=== PATIENT | male | born 1980 | race Caucasian/White ===

== ENCOUNTER → 2019-09-09 09:50 | Outpatient (BNVA) | payer MEDICAID, SELFPAY | PROVIDERS: Family Provider Family Medicine; Visit Provider Counselor Professional | DX: F41.1 Generalized anxiety disorder (principal); Z70.9 Sex counseling, unspecified | CPT/HCPCS: 90834 ==

== ENCOUNTER → 2019-10-04 12:35 | Outpatient (BNVA) | payer MEDICAID, SELFPAY | PROVIDERS: Family Provider Family Medicine; Visit Provider Counselor Professional | DX: F41.1 Generalized anxiety disorder (principal); Z70.9 Sex counseling, unspecified | CPT/HCPCS: 90834 ==

== ENCOUNTER → 2019-10-25 13:42 | Outpatient (BNVA) | payer MEDICAID, SELFPAY | PROVIDERS: Family Provider Family Medicine; Visit Provider Counselor Professional | DX: F32.5 Major depressive disorder, single episode, in full remission (principal); F43.12 Post-traumatic stress disorder, chronic | CPT/HCPCS: 90832 ==

== ENCOUNTER → 2022-05-12 09:12 | Outpatient (BNVA) | payer BC, MEDICAID, SELFPAY | PROVIDERS: Family Provider Family Medicine; Referring Provider Nurse Practitioner; Visit Provider Orthopaedic Surgery | DX: M47.816 Spondylosis without myelopathy or radiculopathy, lumbar region (principal) | CPT/HCPCS: 72110 ==

== ENCOUNTER 2022-06-29 14:09 | Outpatient (CLI) | payer BC, MEDICAID, SELFPAY ==
--- NOTE | 2022-06-29 14:30 | MR_ITS ---
WS: [id number] MRI LUMBAR SPINE NONCONTRAST TECHNIQUE: Sagittal T1, T2 and STIR imaging. Axial T1 and T2 imaging. CLINICAL INFORMATION: back pain, BLE numbness, weakness, tingling COMPARISON: MRI 2018 FINDINGS: Mild lumbar curve. No acute compression. No high-grade central canal stenosis. L1-L2: Mild annular bulging. Slight narrowing of the RIGHT subarticular recess. Mild facet arthropath y. Mild RIGHT and no LEFT foraminal narrowing. Moderate facet arthropathy. Spinal canal is patent. L2-L3: Mild annular bulging. Slight narrowing of the LEFT subarticular recess. Spinal canal and michele en are patent. Moderate facet arthropathy. L3-L4: No significant disc bulging. Slight narrowing of the LEFT subarticular recess. Mild LEFT and n o RIGHT foraminal narrowing. Moderate facet arthropathy. L4-L5: Mild annular bulging with slight effacement of ventral thecal sac. Slight impingement traversi ng L5 nerve roots. Moderate facet arthropathy. Mild RIGHT and no significant LEFT foraminal narrowing . L5-S1: Tiny shallow central protrusion. Slight effacement of the ventral thecal sac. Mild facet arthr opathy. Spinal canal and foramen are patent. Visualized pelvic bony structures: Normal. Paravertebral soft tissues: Normal. MR/MR lumbar spine wo con* [id number] IMPRESSION: 1. Mild lumbar curve. No acute compression. No high-grade central canal stenos is. 2. Narrowing of the RIGHT L1-L2 subarticular recess with slight impingement tr aversing RIGHT L2 nerve root progressed compared to previous. 3. Narrowing of the LEFT L2-L3 subarticular recess progressed compared to prev ious. 4. Narrowing of the LEFT L3-L4 subarticular recess progressed compared to prev ious. 5. Mild annular bulging L4-L5 with slight contact of the traversing L5 nerve r oots bilaterally unchanged. 6. Tiny shallow central protrusion L5-S1 slightly encroaches on the RIGHT S1 n erve root without significant impingement. 7. Mild RIGHT L1-L2, LEFT L3-L4, and RIGHT L4-L5 foraminal narrowing. 8. Moderate facet arthropathy L3-L5.
== END 2022-06-29 14:10 | disposition home or self-care (01) ==
LOC: RAD 14:12
PROVIDERS: PCP Nurse Practitioner; Visit Provider Orthopaedic Surgery
DX: M51.27 Other intervertebral disc displacement, lumbosacral region (principal); M51.26 Other intervertebral disc displacement, lumbar region; M47.896 Other spondylosis, lumbar region
CPT/HCPCS: 72148

== ENCOUNTER 2022-11-28 08:56 | Outpatient (CLI) | payer BC, MEDICAID, SELFPAY ==
[2022-11-28 09:31] LABS: Basophils # 0.1 10^3/uL (0.0-0.1); Basophils % 0.7 %; Eosinophils # 0.1 10^3/uL (0.0-0.8); Eosinophils % 0.9 %; Hematocrit 44.4 % (42.0-52.0); Hemoglobin 15.3 g/dL (11.7-16.6); Lymphocytes % 29.9 %; Mean Corpuscular HGB Conc 34.5 g/dL (30.0-36.0); Mean Corpuscular Hemoglobin 30.4 pg (28.0-34.0); Mean Corpuscular Volume 88.3 fl (80-94); Mean Platelet Volume 9.9 fL (7.4-10.4); Monocytes # 0.6 10^3/uL (0.2-0.9); Monocytes % 8.8 %; Neutrophils # 4.01 10^3/uL (1.8-7.7); Neutrophils % 59.6 %; Nucleated Red Blood Cells % 0 %; Platelet Count 213 10^3/cmm (130-400); Red Blood Count 5.03 10^6/uL (4.1-5.3); White Blood Count 6.7 10^3/uL (4.0-10.0)
[2022-11-28 09:46] LABS: Alanine Aminotransferase 17 U/L (0-41); Albumin Level 4.6 g/dL (3.5-5.2); Alkaline Phosphatase 65 U/L (40-130); Anion Gap 12.1 (5-19); Aspartate Amino Transferase 15 U/L (0-40); Blood Urea Nitrogen 15 mg/dL (6-20); Calcium 9.2 mg/dL (8.5-10.5); Carbon Dioxide 27 mmol/L (22-29); Chloride 102 mmol/L (98-107); Globulin 2.7 g/dL (1.3-4.6); Glomerular Filtration Rate 91.7 mL/min (90-130); Glucose 103 mg/dL (65-115); Osmolality Calculated 285 mOsm/kg (285-295); Potassium 4.1 mmol/L (3.5-5.1); Sodium 137 mmol/L (136-145); Total Bilirubin 0.4 mg/dL (0.15-1.2); Total Protein 7.3 g/dL (6.6-8.7)
== END 2022-11-28 08:57 | disposition home or self-care (01) ==
PROVIDERS: PCP Nurse Practitioner; Visit Provider Physician Assistant
DX: M47.816 Spondylosis without myelopathy or radiculopathy, lumbar region (principal); M51.16 Intervertebral disc disorders with radiculopathy, lumbar region; M48.062 Spinal stenosis, lumbar region with neurogenic claudication
CPT/HCPCS: 36415; 80053; 85025

== ENCOUNTER 2023-02-27 09:32 | Outpatient (CLI) | payer BC, MEDICAID, SELFPAY ==
--- NOTE | 2023-02-27 10:15 | MR_ITS ---
WS: [id number] MRI LUMBAR SPINE NONCONTRAST HISTORY: lower back pain COMPARISON: 06/29/2022 TECHNIQUE: Sagittal and axial multisequence imaging is submitted. Normal lumbar alignment with no compression fractures or marrow edema. Mild disc desiccation. No fractures or marrow edema. New postsurgical changes are noted at the L5-S1 level on the LEFT. Conus terminates normally at L1-2 disc level. T11-12: Mild annular disc bulging with facet arthritis. Disc and osteophyte encroaching into the fora men and subarticular recesses. Moderate RIGHT and mild LEFT foraminal stenosis and mild central and s ubarticular recess stenosis. T12-L1: Mild annular disc bulging with osteophytic ridging. LEFT paracentral disc protrusion with gilda ular fissure. Mild encroachment upon the ventral thecal sac. No significant central stenosis. L1-L2: Mild annular disc bulging. Mild narrowing of the subarticular recesses. Similar to the prior s tudy. Mild RIGHT foraminal stenosis. L2-L3: Mild annular disc bulging. Facet joint arthritis is moderate. Minimal encroachment upon the browning barticular recesses. Mild bilateral foraminal stenosis, RIGHT greater than LEFT. L3-L4: Diffuse annular disc bulging with osteophytic ridging. Ligamentum flavum and facet arthritis. Fluid in the facet joints. Mild subarticular recess narrowing. Mild bilateral foraminal stenosis. L4-L5: Mild annular disc bulge with a central disc protrusion. Mild ligamentum flavum and facet arthr itis. Mild bilateral foraminal and subarticular recess stenosis, RIGHT greater than LEFT. Slightly gr eater contact on the traversing RIGHT L5 nerve root. Mild facet arthritis. L5-S1: Mild disc bulging with a central disc protrusion with annular fissure. Mild osteophytic ridgin g. Moderate to severe bilateral facet joint arthritis. There is mild disc and osteophyte contact on t he traversing LEFT S1 nerve root. There is also mild foraminal stenosis. Small central disc protrusio n. New LEFT hemilaminectomy defect. MR/MR lumbar spine wo con* [id number] IMPRESSION: 1. New since the prior examination is a LEFT hemilaminectomy defect at L5-S1. 2. Central disc protrusion with annular fissure L5-S1 with slightly greater co ntact on the LEFT traversing S1 nerve root as compared to the prior study. 3. Moderate to severe facet joint arthritis at L5-S1. 4. Mild bilateral foraminal stenosis at L5-S1. 5. Moderate RIGHT and mild LEFT foraminal stenosis with mild central and subar ticular recess stenosis at T11-12. 6. LEFT paracentral disc protrusion with annular fissure at T12-L1. 7. Mild bilateral foraminal stenosis, RIGHT greater than LEFT at L2-3. 8. Mild subarticular recess and foraminal stenosis at L3-4. 9. Mild bilateral foraminal and subarticular recess stenosis at L4-5, RIGHT gr eater than LEFT with mild contact on the traversing RIGHT L5 nerve root.
== END 2023-02-27 09:33 | disposition home or self-care (01) ==
PROVIDERS: PCP Nurse Practitioner; Visit Provider Physician Assistant
DX: M51.16 Intervertebral disc disorders with radiculopathy, lumbar region (principal); M51.27 Other intervertebral disc displacement, lumbosacral region; Z98.890 Other specified postprocedural states; M47.817 Spondylosis without myelopathy or radiculopathy, lumbosacral region; M48.07 Spinal stenosis, lumbosacral region; M48.04 Spinal stenosis, thoracic region
CPT/HCPCS: 72148

== ENCOUNTER → 2023-03-16 13:57 | Outpatient (BNVA) | payer BC, MEDICAID, SELFPAY | PROVIDERS: PCP Nurse Practitioner; Visit Provider Physician Assistant | DX: Z01.818 Encounter for other preprocedural examination (principal); M51.37 Other intervertebral disc degeneration, lumbosacral region; Z98.890 Other specified postprocedural states | CPT/HCPCS: 36415; 80053; 81003; 85025 ==

== ENCOUNTER 2023-04-19 18:15 | Observation (INO) | payer BC, MEDICAID, SELFPAY ==
[2023-04-18 15:35] VITALS: BMI 30.7
[2023-04-19] VITALS (16 sets, daily range): BP systolic 89–145; BP diastolic 47–81; PULSE 57–82; RESP 15–25; TEMP 36.6–36.8; O2SAT 92–100; BMI 30.7
--- NOTE | 2023-04-19 | XR_ITS ---
WS: [id number] Exam: XR lumbar spine 2-3V* [id number] Date/Time of Exam: 04/19/2023 12:00 AM Reason For Exam: posterior interbody fusion AP and lateral intraoperative C-arm images of the lower lumbar spine are obtained for intraoperative purposes. Images depict pedicle screws in L5 and S1 with intervening disc spacer.
[2023-04-19] MEDS: sodium chloride 0.9% 1,000 ML 30 ML IV (12:28)
[2023-04-19] MEDS: methadone 10 mg Tablet PO (12:28)
[2023-04-19] MEDS: HYDROmorphone 1 mg/mL INJ 1 mL 0.5 MG IVP (13:24)
--- NOTE | 2023-04-19 13:30 | W.PM.OPSFHP ---
Same Day Surgery H&P Indication for Procedure/HPI DATE OF PROCEDURE: April 19, 2023 CHIEF COMPLAINT/INDICATIONFOR SURGICAL PROCEDURE: Low back pain and leg pain PREOP DIAGNOSIS: Degenerative disc disease with lumbar radiculopathy L5-S1 PLANNED PROCEDURE: Operation Date: 04/19/23 12:50 Proposed Procedures p Posterior Lumbar Interbody Fusion PLIF(Not Applicable) - William Avalos, DO Medications/Allergies* Home Medications Medication Instructions Recorded Confirmed Type lidocaine 5 % topical patch 1 patch topical TID 05/12/22 04/18/23 History cyclobenzaprine 10 mg tablet 10 mg PO BID PRN Muscle Spasm 04/04/23 04/18/23 History duloxetine 60 mg capsule,delayed 60 mg PO DAILY 04/04/23 04/18/23 History release hydroxyzine HCl 25 mg tablet 25 mg PO Q6H PRN Anxiety 04/04/23 04/19/23 History meloxicam 15 mg tablet 15 mg PO DAILY 04/04/23 04/19/23 History Allergies/Adverse Reactions Allergy/AdvReac Type Severity Reaction Status Date / Time No Known Allergies Allergy Verified 04/19/23 11:57 Current Medications: Generic Name Dose Route Start Last Admin Trade Name Freq PRN Reason Stop Dose Admin Hydromorphone HCl 0.5 mg 04/19/23 11:49 04/19/23 13:24 Hydromorphone 1 Mg/Ml Inj 1 Ml IVP 0.5 mg ONCE PRN Administration For preop pain/anxiety Sodium Chloride 1,000 mls @ 30 mls/hr 04/19/23 12:00 04/19/23 12:28 Sodium Chloride 0.9% IV 04/20/23 11:59 30 mls/hr .Q24H MARILIA Administration Pertinent History/Comorbid Conditions* Medical History (Updated 04/04/23 @ 10:50 by Mars Patel NP) Bipolar 1 disorder Generalized anxiety disorder Lumbar disc disease with radiculopathy Lumbar stenosis with neurogenic claudication Major depression Surgical History (Updated 04/04/23 @ 10:44 by Mars Patel NP) History of surgery on arm age 1 had compartment syndrome in right arm and had I&D to drain it. Hx of elbow surgery Hx of knee surgery Hx of shoulder surgery Status post lumbar laminectomy Family History (Updated 04/04/23 @ 10:19 by Mars Patel NP) Denies family history of Clotting disorder Anesthesia complication Bleeding disorder Social History Smoking and tobacco status: former smoker Quit status (tobacco): has quit using tobacco Year quit tobacco: 2021 Former quit date comment: 16 pack year history Alcohol intake: former Year of sobriety/quit date alcohol: 25 Substance/Drug Use: former Date of last use: hx of marijuana use Pertinent Exam Findings alert and oriented x 3 Recommendations Surgery/Procedure today Coding Level of Care Code Acute Code for Chg Fwd Diagnoses
--- NOTE | 2023-04-19 13:40 | ANES.PREANE2 ---
Pre-Anesthetic Assessment Height/Weight: Height 1.8 m Weight 99.79 kg Temp Pulse Resp BP Pulse Ox O2 Del Method 97.8 F 68 18 145/81 97 Room Air 04/19/23 12:06 04/19/23 12:06 04/19/23 12:28 04/19/23 12:06 04/19/23 12:28 04/19/23 12:06 Preop Diagnosis: Degenerative disc disease with lumbar radiculopathy L5-S1 Operation Date: 04/19/23 12:50 Proposed Procedures p Posterior Lumbar Interbody Fusion PLIF(Not Applicable) - William Avalos DO Familial anesthetic complications: none Was Beta Francisca taken within 24 hours: N/A Was Clonidine taken within 24 hours: N/A Last intake: Intake Last Liquid Date 04/19/23 Last Liquid Time 06:00 Last Solid Date 04/18/23 Last Solid Time 21:00 Social No alcohol and No tobacco Exam alert, oriented x 3, clear to auscultation bilaterally and regular rate & rhythm Airway Submandibular: within normal limits Cervical ROM: within normal limits Mallampati: Class II Dentition: chipped Musc/skel Lower Back Pain and Osteoarthritis/DJD Neuropsych Bipolar Anesthetic Plan ASA status: 2 Anesthesia: General Medications/Allergies Home Medications Medication Instructions Recorded Confirmed Last Taken Type lidocaine 5 % topical patch 1 patch topical TID 05/12/22 04/18/23 04/17/23 History cyclobenzaprine 10 mg tablet 10 mg PO BID PRN Muscle Spasm 04/04/23 04/18/23 04/18/23 History duloxetine 60 mg capsule,delayed 60 mg PO DAILY 04/04/23 04/18/23 04/19/23 History release hydroxyzine HCl 25 mg tablet 25 mg PO Q6H PRN Anxiety 04/04/23 04/19/23 04/18/23 History meloxicam 15 mg tablet 15 mg PO DAILY 04/04/23 04/19/23 Unknown History Allergies Allergy/AdvReac Type Severity Reaction Status Date / Time No Known Allergies Allergy Verified 04/19/23 11:57 Current Medications Generic Name Dose Route Start Last Admin Trade Name Freq PRN Reason Stop Dose Admin Hydromorphone HCl 0.5 mg 04/19/23 11:49 04/19/23 13:24 Hydromorphone 1 Mg/Ml Inj 1 Ml IVP 0.5 mg ONCE PRN Administration For preop pain/anxiety Sodium Chloride 1,000 mls @ 30 mls/hr 04/19/23 12:00 04/19/23 12:28 Sodium Chloride 0.9% IV 04/20/23 11:59 30 mls/hr .Q24H MARILIA Administration PFSH Anesthesia Medical History Bipolar 1 disorder Generalized anxiety disorder Lumbar disc disease with radiculopathy Lumbar stenosis with neurogenic claudication Major depression Surgical History History of surgery on arm age 1 had compartment syndrome in right arm and had I&D to drain it. Hx of elbow surgery Hx of knee surgery Hx of shoulder surgery Status post lumbar laminectomy Family History Denies family history of Clotting disorder Anesthesia complication Bleeding disorder Social History Smoking and tobacco status: former smoker Quit status (tobacco): has quit using tobacco Year quit tobacco: 2021 Former quit date comment: 16 pack year history Alcohol intake: former Year of sobriety/quit date alcohol: 25 Substance/Drug Use: former Date of last use: hx of marijuana use Data Anesthesia Blood Bank 04/19/23 12:20 Blood Type A Positive Rho(D) Type Positive Antibody Screen Negative Cardiac Studies: No Data to Display
[2023-04-19] MEDS: ceFAZolin 2,000 MG in sodium chloride 0.9% (plus) 50 ML 100 MG IV ×2 (14:13→21:58)
[2023-04-19] MEDS: lidocaine-epi 1% 20 mL INJ INJECTION (14:43)
[2023-04-19] MEDS: vancomycin 1,000 MG SDV 1000 MG XX (14:50)
[2023-04-19] MEDS: heparin, porcine 1,000 unit/mL INJ 10 mL 10000 UNIT XX (14:52)
--- NOTE | 2023-04-19 16:52 | PM.OP ---
Operative Report Date of procedure: April 19, 2023 Pre-op diagnosis: Lumbar stenosis with neurogenic claudication Post-op diagnosis: same Procedure done: 1. L5/S1 Interbody fusion with posterolateral fusion 2. Instrumentation L5/S1 3. Cage at L5/S1 4. L5/S1 Laminectomy with facetectomies 5. use of autograft from same incision 6. allograft 7. Bone marrow aspirate from right iliac crest 8. Use of computer navigation/stereotactic for spine Surgeon: William Avalos DO Commercial Census Taker: Karan Schaefer Commercial Census Taker: The medical or surgical instrument maker, Karan Schaefer, PAC was needed for his expertise under the microscope. He was important and necessary throughout the procedure to complete in a safe and timely manner. He assisted with patient positioning prepping and draping tissue retraction suctioning of the operative field protection of the dural sac and tissue closure Estimated blood loss (mL): 300 Procedure: 1. L5/S1 Interbody fusion with posterolateral fusion 2. Instrumentation L5/S1 3. Cage at L5/S1 4. L5/S1 Laminectomy with facetectomies 5. use of autograft from same incision 6. allograft 7. Bone marrow aspirate from right iliac crest 8. Use of computer navigation/stereotactic for spine Patient is brought to the operative suite. After undergoing anesthesia, the patient had neuro monitoring attached. Patient was then placed in the prone position on the Reji table. All areas of impingement were well-padded. Patient was then prepped and draped in the normal sterile fashion. Skin incision was then made over the L5-S1 disc space. Subperiosteal dissection was made out to the transverse processes of L5 and S1. Once the exposure was complete attention was then brought to obtain bone marrow aspirate. The [employer] bone marrow aspirate kit was used to aspirate bone marrow aspirate in the right iliac crest. This was done by using the sharp probe to open up the bone. Aspiration was performed and then the blunt probe was then used to dissect down to through the bone tunnel. An aspirating well drawn back a millimeter approximately 20 cc of bone marrow aspirate was used. Admixed with the allograft and autograft bone that will be used. Next attention was brought to placing the computer navigation pins. This was done by placing 2 pins in the right iliac crest. These pins will be removed at the end of the case. The fiducial was attached. Then the computer navigation was linked. The C-arm was brought in the information from the C-arm was then loaded into the fiducial into the computer navigation this information was later used for placing the pedicle screws. The technique for placing the pedicle screws was to use a drill followed by the gearshift probe. Followed by the ball probe to feel the superior inferior medial lateral mccarthy of the pedicles. Then placement of the screws. Was done at each pedicle. Screws were placed at L5 bilaterally and S1. Next attention was brought to performing the laminectomy ofL 5. This was done using the high-speed bur Kerrisons and curettes. Once the lamina was removed and then attention was brought to performing a partial facetectomy on the contralateral side. This was done again using the high-speed bur curettes and Kerrisons. The ligamentum flavum was taken down bilaterally from L 5 to S1. Attention was then brought to the facet on the ipsilateral side. The facet was taken down. The S1 nerve was decompressed as it passed around the S1 pedicle. The laminectomy was done for purposes of decompressing the nerve as well as placement of the cage. The L 5 nerve was identified as it traversed through the L5/S1 foramen. The thecal sac was identified and retracted. The L5/S1 disc base was identified. Using a knife the disc base was opened. And then sequential aniyah were placed. The first shaver was a 6 and the last shaver was a 10. Using a pituitary and down going curette the endplates were scraped and disc material was removed from the space. Once adequate decompression of the disc base was felt to be had. Osteoamp sponge was packed into the anterior aspect of the disc base. Then a size 10 cage from Sri was placed after packing osteoamp into the cage. While placing the cage the thecal sac and S1 nerve was protected. C arm was used to ensure that the cages placed in the appropriate position. Attention was then brought to attaching the rods to the screws placed in the L5 and S1 bilaterally. Caps were torqued into position. Locking the construct in place. Wound was copiously irrigated and then attention was brought to decorticating the facets and transverse processes laterally. Bone that was taken down from the lamina was used along with osteoamp fibers and sponges were packed into the lateral gutters along the facet joints. This was done bilaterally. Wound was then closed in a layered fashion starting with the thoracolumbar fascia. 0-vicryl was used the sub cutaneous tissue was closed with 2-0 vicryl and skin with 4-0 monocryl. Glue was then used to seal the skin and a steril dressing was applied. Patient was then placed in the supine position. The endotracheal tube was removed and patient was transferred to the PACU in stable condition.
[2023-04-19] MEDS: lactated ringers 1,000 ML 90 ML IV (18:50)
[2023-04-20] VITALS: BP 105/62; PULSE 95; RESP 18; TEMP 36.6; O2SAT 95
[2023-04-20] MEDS: HYDROcodone-acetaminophen 5-325 mg Tablet PO ×2 (01:40→08:27)
[2023-04-20 04:48] VITALS: BP 126/66; PULSE 94; RESP 18; TEMP 36.7; O2SAT 94
[2023-04-20] MEDS: ceFAZolin 2,000 MG in sodium chloride 0.9% (plus) 50 ML 100 MG IV ×2 (05:17→10:44)
[2023-04-20] MEDS: lactated ringers 1,000 ML 90 ML IV (05:19)
[2023-04-20 07:17] VITALS: BP 106/58; PULSE 72; RESP 17; O2SAT 97
--- NOTE | 2023-04-20 07:44 | PM.PN ---
Subjective Subjective: POD 1 Patient comfortable reports mild back pain numbness in the legs. Denies chest pain, shortness of breath, headaches. Vitals/I&O/Wt Last Vital Signs Temp 98.0 F 04/20/23 04:48 Pulse 72 04/20/23 07:17 Resp 17 04/20/23 07:17 BP 106/58 04/20/23 07:17 Pulse Ox 97 04/20/23 07:17 O2 Del Method Room Air 04/20/23 07:17 O2 Flow Rate 6 04/19/23 18:05 04/19/23 04/20/23 04/20/23 22:59 06:59 14:59 Intake Total 587.5 / 637.5 1523.5 / 2161.0 Output Total 430 / 430 1060 / 1490 Balance 157.5 / 207.5 463.5 / 671.0 Weight last 48 hrs Weight 220 lb Weight 220 lb Physical Exam Narrative: Patient presents alert and oriented x3 with a good general appearance normal mood and affect. Normal coordination normal stability. Mild tenderness around the incisional site with the incision appear to be clean and dry with Hemovac intact. No signs of erythema or drainage. No signs of infection. Patient denies any fevers or chills. 5/5 motor strength both lower extremities with negative straight leg raise bilaterally. Calves are supple no medial thigh tenderness. Pulses are 2+ at the dorsalis pedis and posterior tibial region. Good capillary refill throughout normal sensation light touch both lower extremities. Urinary Catheter Management: Solorzano: Cath Placed During This Visit: yes Reason for Continuing Indwelling Catheter: Required Immobilization for Trauma or Surgery or Anesthesia Urinary Catheter Date of Insertion: 04/19/23 Urinary Catheter Time of Insertion: 14:25 A&P Assessment and plan (1) Status post lumbar spinal fusion: Encourage mobilization with no bending lifting or twisting. We will discontinue Hemovac drain and Solorzano catheter. Encourage incentive spirometry for pulmonary toilet. Will discharge home later this morning. We will have him return to the office in 1 week's time or call if he is having problems. Discussed tobacco cessation. Attestations Medical Necessity Statement*: Discharge home later today after Hemovac drain discontinued Coding Level of Care Code Acute Code for Chg Fwd Diagnoses Status post lumbar spinal fusion Z98.1
[2023-04-20] MEDS: duloxetine 60 mg Capsule PO (08:27)
[2023-04-20] MEDS: docusate sodium 100 mg Capsule PO (08:27)
[2023-04-20] MEDS: meloxicam 7.5 mg tablet 15 MG PO (08:28)
[2023-04-20] MEDS: cyclobenzaprine 10 mg Tablet PO (08:29)
--- NOTE | 2023-04-20 08:46 | ANE.PACU2 ---
Inpatient post-anesthesia follow up: Airway intact: Yes Vital signs: Temperature 98.0 F Pulse Rate 72 Respiratory Rate 17 Blood Pressure 106/58 Pulse Oximetry 97 Oxygen Delivery Me thod Room Air Oxygen Flow Rate 6 Fraction of Inspir ed Oxygen Hydration adequate: Yes Nausea and vomiting: No Pain level: 4 Mental status: Baseline
--- NOTE | 2023-04-20 10:04 | PC.CHAP ---
Pastoral Care Encounter/Spiritual Assessment Type of Contact [] Declined respiratory technician visit [] Patient/Family/Request visit [] Outpatient visit [] Follow-up visit [] Physician referral [] Code/Alert [x] Routine visit [] Staff referral [] Actively dying [] Patient sleeping [] Family support [] [] Out of room [] Palliative care [] [x] Receiving care in room [] Pre-surgical visit [] Trauma [] Long length of stay [] ICU visit [] Other: Relational/Emotional Strength [x] Patient feels connected with others/family/visitors/staff [] Distress [] Loneliness/isolation [] Abandonment Spirituality of Patient [x] Person of Lois [] Attends Sabianism of their Lois [x] Believes in Prayer [] Reads Bible or Episcopalian materials [] There are Spiritual issues to be addressed Pier Runner Interventions [x] Prayer [x] Active listening [x] Non-anxious presence [x] Spiritual/emotional support [] Crisis/trauma care [x] Spiritual counseling [] Bereavement support [] Provided bereavement packet [] Provided Bible/devotional materials [] Provided toy/stuffed animal, coloring book to patient or family member [] Provided Communion [] Anointing/[place] [] Salvation [x] Completed spiritual assessment [] Other: Impact on Illness or Injury [] Angry [] Fearful [] Anxious [] Often cries [] Exhaustion [] Unable to work [] Unable to attend orthodoxy [] Unable to walk/stand [] Unable to read [] Unable to drive [] Unable to eat/drink [] Unable to sleep [] Unable to be with family [] Patient intubated [] Other: Summary Surgery on back had rods well rehab at [facility] attitude +1 family Time spent with patient 10 mins
[2023-04-20] MEDS: lidocaine 5% Patch 1 PATCH TOPICAL (10:16)
[2023-04-20 11:29] VITALS: BP 106/58; PULSE 72; RESP 17; TEMP 36.7; O2SAT 97
--- NOTE | 2023-04-20 11:35 | PC.NURSE ---
Patient verbalized understanding on discharge instructions and medications. This nurse answered all questions and concerns voiced by patient during discharge education.
== END 2023-04-20 11:31 | disposition home or self-care (01) ==
LOC: MEDSURG 18:16
PROVIDERS: Admitting Provider Orthopaedic Surgery; PCP Nurse Practitioner; Visit Provider Orthopaedic Surgery
PROC: (CPT 22612; principal; 2023-04-19 12:40)
DX: M48.062 Spinal stenosis, lumbar region with neurogenic claudication (principal); F31.9 Bipolar disorder, unspecified; F41.1 Generalized anxiety disorder; Z87.891 Personal history of nicotine dependence
CPT/HCPCS: 20930; 20936; 20939; 22633; 22840; 22853; 61783; 36415; 51702; 72100; 76000; 86850; 86900; 97116; 97161; C1713; G0378; J0131; J0690; J1100; J1170; J1644; J2250; J2371; J2405; J2704; J3010; J3370; J3475; J3490; J7030; J7120

== ENCOUNTER → 2023-05-02 10:00 | Outpatient (BNVA) | payer BC, MEDICAID, SELFPAY | PROVIDERS: PCP Nurse Practitioner; Visit Provider Orthopaedic Surgery | DX: Z98.1 Arthrodesis status (principal) | CPT/HCPCS: 72100 ==

== ENCOUNTER → 2023-06-06 08:54 | Outpatient (BNVA) | payer BC, MEDICAID, SELFPAY | PROVIDERS: PCP Nurse Practitioner; Visit Provider Orthopaedic Surgery | DX: Z98.1 Arthrodesis status (principal); Z47.89 Encounter for other orthopedic aftercare | CPT/HCPCS: 72100 ==

== ENCOUNTER → 2023-07-25 10:44 | Outpatient (BNVA) | payer BC, SELFPAY | PROVIDERS: PCP Nurse Practitioner; Visit Provider Orthopaedic Surgery | DX: Z98.1 Arthrodesis status (principal) | CPT/HCPCS: 72100 ==

== ENCOUNTER 2023-09-26 06:00 | Outpatient (RCR) | payer BC, MEDICAID, SELFPAY | END 2023-10-05 23:59 | disposition home or self-care (01) | LOC: GPT 06:00 | PROVIDERS: Visit Provider Orthopaedic Surgery | DX: M43.27 Fusion of spine, lumbosacral region (principal) | CPT/HCPCS: 97162 ==

== ENCOUNTER → 2023-10-10 10:35 | Outpatient (BNVA) | payer BC, MEDICAID, SELFPAY | PROVIDERS: Visit Provider Psychiatry & Neurology Psychiatry | DX: F31.81 Bipolar II disorder (principal); F41.1 Generalized anxiety disorder; Z79.899 Other long term (current) drug therapy | CPT/HCPCS: 80053; 80164; 84443 ==

== ENCOUNTER → 2023-10-24 09:54 | Outpatient (BNVA) | payer BC, MEDICAID, SELFPAY | PROVIDERS: PCP Nurse Practitioner; Visit Provider Orthopaedic Surgery | DX: Z98.1 Arthrodesis status (principal) | CPT/HCPCS: 72100 ==

== ENCOUNTER 2023-12-05 13:17 | Outpatient (CLI) | payer BC, MEDICAID, SELFPAY ==
--- NOTE | 2023-12-05 13:45 | MR_ITS ---
WS: [id number] MRI LUMBAR SPINE NONCONTRAST HISTORY: post lumbar fusion, chronic back pain radiating down both legs. COMPARISON: 02/27/2023 TECHNIQUE: Sagittal and axial multisequence imaging is submitted. LEFT paracentral C6-7 disc protrusion. Normal lumbar alignment. New posterior fusion hardware at L5-S1. Mild desiccation at L5-S1. The remaining disc spaces are preserved. Conus terminates normally at L1-2 disc level. T12-L1: Shallow LEFT paracentral disc protrusion with annular fissure. L1-L2: Mild diffuse annular disc bulging and mild osteophytic ridging. Very mild encroachment upon th e subarticular recesses and RIGHT foramen. L2-L3: Mild annular disc bulging and facet arthritis. Mild bilateral foraminal stenosis. No progressi on. L3-L4: Mild annular disc bulging and osteophytic ridging. Bilateral facet joint arthritis and foramin al stenosis. Mild subarticular recess narrowing. L4-L5: Mild annular disc bulging with a central disc protrusion. Ligamentum flavum and facet joint ar thritis. Mild subarticular recess and foraminal stenosis. There is mild encroachment upon the kristina ing L5 nerve roots. Slightly greater RIGHT foraminal stenosis. L5-S1: Posterior laminectomy defect. Osteophytic ridging. Central disc protrusion is smaller in size than before. Facet joint arthritis. Bilateral foraminal stenosis, RIGHT greater than LEFT. RIGHT fora august stenosis has progressed since the prior study. Paravertebral soft tissues are negative. MR/MR lumbar spine wo con* [id number] IMPRESSION: 1. Interval posterior lumbar fusion at L5-S1 with a large laminectomy defect. 2. Increase soft tissue in the RIGHT foramen of L5-S1 has progressed since the prior study. There may be a small disc protrusion in the foramen. Bilateral fo raminal stenosis, RIGHT greater than LEFT. 3. Central disc protrusion at L5-S1 is smaller as compared to 02/27/2023. 4. Multilevel subarticular recess encroachment and foraminal stenoses. No high -grade central or foraminal stenosis.
== END 2023-12-05 13:18 | disposition home or self-care (01) ==
LOC: RAD 13:17
PROVIDERS: PCP Nurse Practitioner; Referring Provider Orthopaedic Surgery; Visit Provider Orthopaedic Surgery
DX: Z98.1 Arthrodesis status (principal); M51.27 Other intervertebral disc displacement, lumbosacral region; M48.07 Spinal stenosis, lumbosacral region
CPT/HCPCS: 72148

== ENCOUNTER 2024-01-05 11:07 | Outpatient (CLI) | payer BC, MEDICAID, SELFPAY ==
[2022-12-02 08:52] VITALS: BMI 29.0
--- NOTE | 2022-12-02 15:16 | P.ANESASSM_ITS ---
Pre-Anesthetic Assessment Height/Weight: Height 1.8 m Weight 94.347 kg Operation Date: 12/09/22 09:05 Proposed Procedures p MicroDiscectomy: Microdisectomy with decompression 59077 M51.27(Not Applicable) - DO nghia Jo Lumbar Spine Decompression(Not Applicable) - William Avalos DO Familial anesthetic complications: none Was Beta Francisca taken within 24 hours: N/A Was Clonidine taken within 24 hours: N/A Social No alcohol and No tobacco Exam alert, oriented x 3, clear to auscultation bilaterally and regular rate & rhythm Airway Submandibular: within normal limits Cervical ROM: within normal limits Mallampati: Class II Dentition: chipped Musc/skel Lower Back Pain and Osteoarthritis/DJD Neuropsych Anxiety and Depression Anesthetic Plan ASA status: 2 Anesthesia: General Medications/Allergies Home Medications Medication Instructions Recorded Confirmed Last Taken Type lidocaine 5 % topical patch 1 patch topical TID 05/12/22 12/02/22 12/02/22 History meloxicam 7.5 mg tablet 7.5 mg PO DAILY 05/12/22 12/02/22 12/02/22 History tizanidine 4 mg capsule 4 mg PO Q8H PRN muscle relaxer 05/12/22 12/02/22 0 12/01/22 History duloxetine 30 mg capsule,delayed 30 mg PO BID 12/02/22 12/02/22 12/02/22 History release lorazepam 2 mg tablet 2 mg PO TID PRN Anxiety 12/02/22 12/02/22 Unknown History Allergies Allergy/AdvReac Type Severity Reaction Status Date / Time No Known Allergies Allergy Verified 12/02/22 08:48 PFSH Anesthesia Surgical History Hx of elbow surgery Hx of knee surgery Hx of shoulder surgery Data Anesthesia Cardiac Studies: No Data to Display
[2022-12-09] VITALS (10 sets, daily range): BP systolic 104–140; BP diastolic 67–81; PULSE 60–75; RESP 12–18; TEMP 36.4–36.7; O2SAT 94–99
[2022-12-09] MEDS: sodium chloride 0.9% 1,000 ML 30 ML IV (06:33)
[2022-12-09] MEDS: HYDROmorphone 1 mg/mL INJ 1 mL 0.5 MG IVP (06:37)
--- NOTE | 2022-12-09 06:38 | P.ANESUD_ITS ---
Pre-Anesthetic Update Pre-Anesthetic Assessment: Date of Surgery/Procedure: 12/09/22 Preop Genesis gnosis: Left L5-S1 herniated nucleus pulposus,, lumbosacral radiculopathy Proposed Procedure: Operation Date: 12/09/22 07:00 Proposed Procedures p MicroDiscectomy: Left Microdisectomy with decompression 18612 M51.27(Not Applicable) - William Avalos, DO s Lumbar Spine Decompression(Not Applicable) - William Avalos, DO Any changes to Pre-Anesthetic Assessment?: No Last Intake: Intake Last Liquid Date 12/08/22 Last Liquid Time 22:00 Last Solid Date 12/08/22 Last Solid Time 22:00 Vitals: Temperature 98.1 F 12/09/22 05:56 Temperature Source Temporal Artery S can 12/09/22 05:56 Pulse Rate 60 12/09/22 05:56 Respiratory Rate 18 12/09/22 05:56 Blood Pressure 104/76 12/09/22 05:56 Blood Pressure Lorraine n 85 12/09/22 05:56 Pulse Oximetry 99 12/09/22 05:56 Oxygen Delivery Me thod Room Air 12/09/22 06:03 Exam: Pre-Anes Outpt Exam: alert, oriented x 3, clear to auscultation bilaterally and regular rate & rhythm Cardiac Studies: No Data to Display
--- NOTE | 2022-12-09 06:39 | W.PM.OPSUD ---
Surgery/Procedure H&P Update DATE OF PROCEDURE: December 09, 2022 DATE H&P PERFORMED: 11/22/22 H&P UPDATE INFORMATION: I have reviewed H&P completed within last 30 days, I have examined patient prior to procedure and No changes to prior documentation PREOP DIAGNOSIS: Left L5-S1 herniated nucleus pulposus,, lumbosacral radiculopathy PLANNED PROCEDURE: Operation Date: 12/09/22 07:00 Proposed Procedures p MicroDiscectomy: Left Microdisectomy with decompression 74320 M51.27(Not Applicable) - DO nghia Jo Lumbar Spine Decompression(Not Applicable) - William Avalos DO
[2022-12-09] MEDS: ceFAZolin 2,000 MG in sodium chloride 0.9% (plus) 50 ML 100 MG IV (06:55)
[2022-12-09] MEDS: lidocaine-epi 2% 20 mL INJ INJECTION (07:24)
--- NOTE | 2022-12-09 08:08 | XR_ITS ---
WS: [id number] XR lumbar spine 2-3V* [id number] REASON FOR EXAM: or pics FINDINGS: Surgical device overlying the left L5-S1 disc space. XR/XR lumbar spine 2-3V* [id number] IMPRESSION: Intraoperative lumbar localization as above.
--- NOTE | 2022-12-09 08:15 | PC.NURSE ---
Pt arrived to PACU at 0812, oral airway in place, O2 at 6L/min via simple mask. Dressing to lower back C/D/I. Pt awake at 0815, oral airway and O2 removed, pt tolerated well. Able to move all extremities.
--- NOTE | 2022-12-09 08:16 | P.OP_ITS ---
Operative Report Date of procedure: December 09, 2022 Pre-op diagnosis: Preop Diagnosis Left L5-S1 herniated nucleus pulposus,, lumbosacral radiculopathy Post-op diagnosis: same Procedure done: 1. L5/S1 laminectomy , partial facetectomy and diskectomy Surgeon: William Avalos Assembler Type Bar And Segment: none Estimated blood loss (mL): 5 Procedure: 1. L5/S1 laminectomy , partial facetectomy and diskectomy Patient is brought to the operative suite. After undergoing anesthesia they are placed in the prone position. All areas of impingement are well padded. Patient is then prepped and draped in the normal sterile fashion. A skin incision is made over the L5/S1 level. This is confirmed under c-arm guidance. A series of dilators are passed and the tubular retractor is docked on the L5 lamina. A bovie is used to clear the soft tissue off the lamina and the L 5/S1 facet joint. A high speed cintia is then used to perform the laminectomy and take down the medial aspect of the L 5/S1 facet joint. A kerrison rongeure was then used to take down the remaining lamina and smooth the edge of the laminectomy up to the point where the ligamentum flavum attaches. Attention was then brought to the medial aspect of the facet joint. The remaining medial aspect of the superior and inferior aspect of the facet joint were taken down with the kerrison from the pedicle of L5 to S1. The facet joint had significant hypertrophy. Attention was then brought to the Ligamentum Flavum. The ligament was taken down from the lamina of L5 to S1 and out medially to the remaining facet joint. The ligament was thick. The dura was then exposed. The dura was in good repair. S1 nerve was retracted this was identified knife was used to cut out the disc micropituitary was used to remove disc fragments disc space was irrigated and loose fragments were removed. The L5 nerve was then traced with a curette out the L5/S1 foramen and found to be adequately decompressed. The S1 nerve was traced with a curette around the S1 pedicle. The lateral recess was opened with a kerrison helping to further decompress the S1 nerve. Wound is then irrigated copiously with saline and surgiflo is used to stop any bleeding. The tubular retractor is removed and the wound is closed with vicryl and monocryl suture. Glue is then used to protect the wound. A sterile dressing is then placed. Patient was then placed in the supine position and transferred to the PACU in stable condition.
[2022-12-09] MEDS: HYDROcodone-acetaminophen 5-325 mg Tablet 2 TAB PO (09:09)
--- NOTE | 2022-12-09 12:23 | ANE.PACU2 ---
Inpatient post-anesthesia follow up: Airway intact: Yes Vital signs: Temperature 98 F Pulse Rate 68 Respiratory Rate 18 Blood Pressure 128/80 Pulse Oximetry 95 Oxygen Delivery Me thod Room Air Oxygen Flow Rate 6 Fraction of Inspir ed Oxygen Hydration adequate: Yes Nausea and vomiting: No Pain level: 1 Mental status: Baseline
[2024-01-05 12:08] LABS: Basophils % 0.5 %; Eosinophils # 0.1 10^3/uL (0.0-0.8); Eosinophils % 0.6 %; Hematocrit 45.9 % (37-53); Lymphocytes # 2.6 10^3/uL (0.8-4.8); Lymphocytes % 33.7 %; Mean Corpuscular Hemoglobin 30.2 pg (27-33); Mean Platelet Volume 10.9 fL (7.4-10.4); Monocytes # 0.8 10^3/uL (0.2-0.9); Monocytes % 9.7 %; Neutrophils # 4.28 10^3/uL (1.8-7.7); Neutrophils % 55.2 %; Nucleated Red Blood Cells % 0 %; Platelet Count 210 10^3/cmm (157-399); Red Blood Count 5.16 10^6/uL (3.85-5.65); Red Cell Distribution Width 12.2 % (12.1-15.1); White Blood Count 7.75 10^3/uL (3.29-11.43)
[2024-01-05 12:27] LABS: Alanine Aminotransferase 32 U/L (0-41); Albumin Level 4.4 g/dL (3.5-5.2); Alkaline Phosphatase 60 U/L (40-130); Anion Gap 16.2 (5-19); Aspartate Amino Transferase 25 U/L (0-40); Blood Urea Nitrogen 14 mg/dL (6-20); Calcium 9.4 mg/dL (8.5-10.5); Carbon Dioxide 24 mmol/L (22-29); Chloride 101 mmol/L (98-107); Glomerular Filtration Rate 104.5 mL/min (90-130); Glucose 99 mg/dL (65-115); Osmolality Calculated 285 mOsm/kg (285-295); Potassium 4.2 mmol/L (3.5-5.1); Sodium 137 mmol/L (136-145); Total Bilirubin 0.3 mg/dL (0.15-1.2); Total Protein 7.4 g/dL (6.6-8.7)
[2024-01-05 13:04] LABS: Glucose Urine UA Norm (Normal); Ketones Urine Negative (Negative); Protein Urine Neg (Negative); Specific Gravity, Urine 1.015 (1.005-1.030); Urine Appearance Clear (CLEAR); Urine Color Yellow (Yellow); pH Urine 8 (5-7)
[2024-01-05 13:05] LABS: Bilirubin Urine Neg (Negative); Blood Urine Neg (Negative); Leukocyte Esterase Urine Negative (Negative); Nitrate Urine Negative (Negative); Sulfosalicylic Acid Urine Negative (Negative); Urobilinogen Urine Neg (Negative)
[2024-01-05 13:06] LABS: WBC Urine RARE /hpf (0-5)
[2024-01-05 13:07] LABS: Add Urine Culture? No
== END 2024-01-05 11:08 | disposition home or self-care (01) ==
LOC: LAB 11:08
PROVIDERS: PCP Nurse Practitioner; Visit Provider Orthopaedic Surgery
PROC: (CPT 63030; principal; 2022-12-09 07:00)
PROC: (CPT 63005; 2022-12-09 07:00)
DX: M51.17 Intervertebral disc disorders with radiculopathy, lumbosacral region (principal); Z79.899 Other long term (current) drug therapy; Z01.818 Encounter for other preprocedural examination
CPT/HCPCS: 63030; 72100; 76000; 80053; 81001; 85025; J0690; J1170; J2405; J2704; J2710; J3010; J3490; J7030

== ENCOUNTER 2024-01-17 10:14 | Observation (INO) | payer BC, MEDICAID, SELFPAY ==
[2024-01-17] VITALS (18 sets, daily range): BP systolic 106–138; BP diastolic 70–85; PULSE 58–90; RESP 13–20; TEMP 36.3–37.2; O2SAT 92–100; BMI 32.3; BMI 31.4
--- NOTE | 2024-01-17 06:29 | W.PM.OPSUD ---
Surgery/Procedure H&P Update DATE OF PROCEDURE: January 17, 2024 DATE H&P PERFORMED: 01/10/24 H&P UPDATE INFORMATION: I have reviewed H&P completed within last 30 days, I have examined patient prior to procedure and No changes to prior documentation PREOP DIAGNOSIS: Lumbar stenosis with neurogenic claudication PLANNED PROCEDURE: Operation Date: 01/17/24 07:00 Proposed Procedures p Posterior Lumbar Interbody Fusion [id number], [id number], [id number], [id number], (Not Applicable) - William Avalos DO
[2024-01-17] MEDS: sodium chloride 0.9% 1,000 ML 30 ML IV (06:35)
[2024-01-17] MEDS: methadone 10 mg Tablet PO (06:35)
[2024-01-17] MEDS: midazolam 1 mg/mL INJ 2 mL 2 MG IVP (06:45)
[2024-01-17] MEDS: HYDROmorphone 1 mg/mL INJ 1 mL 0.5 MG IVP (06:46)
[2024-01-17] MEDS: ceFAZolin 2,000 MG in sodium chloride 0.9% (plus) 50 ML 100 MG IV ×3 (07:02→22:56)
[2024-01-17] MEDS: lidocaine-epi 2% PF 1:200,000 20 mL SDV XX (07:35)
[2024-01-17] MEDS: vancomycin 1,000 MG SDV 1000 MG XX (07:35)
[2024-01-17] MEDS: heparin, porcine 1,000 unit/mL INJ 10 mL 10000 UNIT IRRIGATION (07:35)
--- NOTE | 2024-01-17 07:54 | ANES.PREANE2 ---
Pre-Anesthetic Assessment Height/Weight: Height 1.75 m Weight 99.337 kg Temp Pulse Resp BP Pulse Ox O2 Del Method 97.6 F 58 L 19 H 115/74 95 Room Air 01/17/24 06:14 01/17/24 06:14 01/17/24 06:46 01/17/24 06:14 01/17/24 06:46 01/17/24 06:14 Preop Diagnosis: Lumbar stenosis with neurogenic claudication Operation Date: 01/17/24 07:00 Proposed Procedures p Posterior Lumbar Interbody Fusion [id number], [id number], [id number], [id number], [id number](Not Applicable) - William Avalos DO Familial anesthetic complications: none Was Beta Francisca taken within 24 hours: N/A Was Clonidine taken within 24 hours: N/A Last intake: Intake Last Liquid Date 01/16/24 Last Liquid Time 22:30 Last Solid Date 01/16/24 Last Solid Time 19:00 Social Tobacco and No alcohol Exam alert, oriented x 3, clear to auscultation bilaterally and regular rate & rhythm Airway Submandibular: within normal limits Cervical ROM: within normal limits Mallampati: Class II Dentition: full Pulmonary Chronic Obstructive Pulmonary Disease Metabolic Morbid Obesity Musc/skel Lower Back Pain and Osteoarthritis/DJD Neuropsych Anxiety and Depression Chronic pain/opioid Anesthetic Plan ASA status: 3 Anesthesia: General Medications/Allergies Home Medications Medication Instructions Recorded Confirmed Last Taken Type lidocaine 5 % topical patch 1 patch topical TID 05/12/22 01/16/24 01/15/24 History meloxicam 15 mg tablet 15 mg PO DAILY 04/04/23 01/16/24 01/09/24 History buspirone 10 mg tablet 10 mg PO BID #60 tabs 10/10/23 01/16/24 01/16/24 Rx duloxetine 60 mg capsule,delayed 60 mg PO DAILY #30 caps 10/10/23 01/16/24 01/16/24 Rx release tizanidine 4 mg tablet 4 mg PO BID PRN muscle spasticity 12/14/23 01/16/24 01/16/24 Rx 30 days #60 tabs oxycodone 5 mg tablet 5 mg PO Q8H PRN pain 7 days #21 12/25/23 01/16/24 01/15/24 Rx tabs divalproex 500 mg tablet,extended 1,000 mg PO QPM 01/16/24 01/16/24 01/15/24 History release 24 hr (Depakote ER) Allergies Allergy/AdvReac Type Severity Reaction Status Date / Time hydroxyzine AdvReac Intermediate Gives Verified 01/10/24 09:57 problems with vision. Current Medications Generic Name Dose Route Start Last Admin Trade Name Freq PRN Reason Stop Dose Admin Hydromorphone HCl 0.5 mg 01/17/24 06:05 01/17/24 06:46 Hydromorphone 1 Mg/Ml Inj 1 Ml IVP 0.5 mg ONCE PRN Administration For preop pain/anxiety Sodium Chloride 1,000 mls @ 30 mls/hr 01/17/24 06:15 01/17/24 06:35 Sodium Chloride 0.9% IV 01/18/24 06:14 30 mls/hr .Q24H MARILIA Administration Midazolam HCl 2 mg 01/17/24 06:05 01/17/24 06:45 Midazolam 1 Mg/Ml Inj 2 Ml IVP 2 mg ONCE PRN Administration Preop Anxiety PFSH Anesthesia Medical History Psychiatric care Major depression Generalized anxiety disorder Bipolar 1 disorder Lumbar disc disease with radiculopathy Lumbar stenosis with neurogenic claudication Surgical History History of surgery on arm age 1 had compartment syndrome in right arm and had I&D to drain it. Status post lumbar laminectomy Hx of shoulder surgery Hx of elbow surgery Hx of knee surgery Family History Denies family history of Clotting disorder Anesthesia complication Bleeding disorder Social History Smoking and tobacco/nicotine status: former use of tobacco/nicotine Quit status (tobacco/nicotine): has quit using Year quit tobacco: 2021 Former quit date comment: 16 pack year history Alcohol intake: former Year of sobriety/quit date alcohol: 25 Substance/Drug Use: former Date of last use: hx of marijuana use Data Anesthesia Cardiac Studies: No Data to Display
--- NOTE | 2024-01-17 09:32 | XR_ITS ---
WS: [id number] C-ARM RADIOGRAPHS LUMBAR SPINE; 3 IMAGES HISTORY: LUMBAR FUSION COMPARISON: None available. Extensive lumbosacral fusion performed with fluoroscopy imaging. Fusion appears to be from L4-S1 with interbody spacers at L4-5 and L5-S1. XR/XR lumbar spine 2-3V* [id number] IMPRESSION: Intraoperative imaging by C-arm during lumbosacral fusion
--- NOTE | 2024-01-17 09:53 | PM.OP ---
Operative Report Date of procedure: January 17, 2024 Pre-op diagnosis: Lumbar stenosis with neurogenic claudication Post-op diagnosis: same Procedure done: 1. L4/5 Interbody fusion with posterolateral fusion 2. Instrumentation L4-S1 3. Cage at L4/5 4. L4-5 laminectomy with facetectomy for reasons of decompressing nerve 5. use of autograft from same incision 6. allograft 7. Bone marrow aspirate from right iliac crest 8. Use of computer navigation stereotactic for the spine. 9. Remove deep hardware from spine Surgeon: William Avalos DO Estimated blood loss (mL): 300 Procedure: 1. L4/5 Interbody fusion with posterolateral fusion 2. Instrumentation L4-S1 3. Cage at L4/5 4. L4-5 laminectomy with facetectomy for reasons of decompressing nerve 5. use of autograft from same incision 6. allograft 7. Bone marrow aspirate from right iliac crest 8. Use of computer navigation stereotactic for the spine. 9. Remove deep hardware from spine Patient is brought to the operative suite. After undergoing anesthesia, the patient had neuro monitoring attached. Patient was then placed in the prone position on the Reji table. All areas of impingement were well-padded. Patient was then prepped and draped in the normal sterile fashion. Skin incision was then made over previous skin incision with extension superiorly over the L4-5 level. Subperiosteal dissection was made out to the transverse processes of L4 bilaterally, L5 bilaterally and sacral ala bilaterally. The L5-S1 screws were identified. The screw caps were removed and the rods were removed. The [employer] bone marrow aspirate kit was used to aspirate bone marrow aspirate. This was done by using the sharp probe to open up the bone. Aspiration was performed and then the blunt probe was then used to dissect down to through the bone tunnel. An aspirating well drawn back a millimeter approximately 20 cc of bone marrow aspirate was used. Admixed with the allograft and autograft bone that will be used. Next tension was brought to placing 2 pins in the right iliac crest these pins were later removed. The fiducial was attached to this computer navigation was brought in and serum spun around patient. Information from serum was loaded the computer in order to facilitate using the computer navigation for the spine. The technique for placing the pedicle screws was to use a drill followed by the gearshift probe linked to computer navigation. Followed by the ball probe to feel the superior inferior medial lateral mccarthy of the pedicles. Then placement of the screws linked to computer navigation. Was done at each pedicle. Screws were placed at L4 bilaterally. Next attention was brought to performing the laminectomy ofL4. This was done using the high-speed bur Kerrisons and curettes. Once the lamina was removed and then attention was brought to performing a partial facetectomy on the contralateral side. This was done again using the high-speed bur curettes and Kerrisons. The ligamentum flavum was taken down bilaterally from L4 to L5. Attention was then brought to the facet on the ipsilateral side. The facet was taken down. The L5 nerve was decompressed as it passed around the L5 pedicle. The laminectomy was done for purposes of decompressing the nerve as well as placement of the cage. The L4 nerve was identified as it traversed through the L4/5 foramen. The thecal sac was identified and retracted. The L4/5 disc base was identified. Using a knife the disc base was opened. And then sequential aniyah were placed. The first shaver was a 6 and the last shaver was a 12. Using a pituitary and down going curette the endplates were scraped and disc material was removed from the space. Once adequate decompression of the disc base was felt to be had. Osteoamp sponge was packed into the anterior aspect of the disc base. Then a size 13 cage from [employer] was placed after packing osteoamp into the cage. While placing the cage the thecal sac and L5 nerve was protected. C arm was used to ensure that the cages placed in the appropriate position. Attention was then brought to attaching the rods to the screws placed in the L4 bilaterally, L5 bilaterally and S1 bilaterally. Caps were torqued into position. Locking the construct in place. Wound was copiously irrigated and then attention was brought to decorticating the facets and transverse processes laterally. Bone that was taken down from the lamina was used along with osteoamp fibers and sponges were packed into the lateral gutters along the facet joints. This was done bilaterally. Wound was then closed in a layered fashion starting with the thoracolumbar fascia. 0-vicryl was used the sub cutaneous tissue was closed with 2-0 vicryl and skin with 4-0 monocryl. Glue was then used to seal the skin and a steril dressing was applied. Patient was then placed in the supine position. The endotracheal tube was removed and patient was transferred to the PACU in stable condition.
--- NOTE | 2024-01-17 11:11 | PC.NURSE ---
Notified Dr. Avalos of Suicide Risk assessment answers containing a lot of yes. Patient stated he sees a counselor chao and takes medication of the suicidal ideations.
[2024-01-17] MEDS: lactated ringers 1,000 ML 90 ML IV ×2 (12:49→21:21)
[2024-01-17] MEDS: oxyCODONE-APAP 10-325 mg Tablet PO ×3 (12:52→23:38)
--- NOTE | 2024-01-17 15:44 | ANE.PACU2 ---
Inpatient post-anesthesia follow up: Airway intact: Yes Vital signs: Temperature 97.3 F Pulse Rate 90 Respiratory Rate 16 Blood Pressure 106/72 Pulse Oximetry 97 Oxygen Delivery Me thod Room Air Oxygen Flow Rate 6 Fraction of Inspir ed Oxygen Hydration adequate: Yes Nausea and vomiting: No Pain level: 3 Mental status: Baseline
--- NOTE | 2024-01-17 16:41 | PC.NURSE ---
Patient wanted to set in chair. Noted back had been draining. It was clean and dry upon arriving to floor. Clot was also noted in the line. clot was cleared from line. Will watch drain to see if it continues to leak from back area. Notified Dr. Avalos, will continue to watch site and will reinforces if needed.
[2024-01-17] MEDS: docusate sodium 100 mg Capsule PO (17:22)
[2024-01-17] MEDS: BuSPIRONE 10 mg Tablet PO (17:22)
[2024-01-17] MEDS: tizanidine 4 mg Tablet PO (17:22)
[2024-01-17] MEDS: divalproex ER 500 mg Tablet (24H) 1000 MG PO (21:19)
[2024-01-17] MEDS: morphine 4 mg/mL SDV 1 mL 2 MG IVP (21:25)
[2024-01-18] VITALS: BP 119/66; PULSE 88; RESP 20; TEMP 36.9; O2SAT 94
[2024-01-18 04:00] VITALS: BP 113/70; PULSE 63; RESP 20; TEMP 36.5; O2SAT 98
[2024-01-18 04:29] VITALS: RESP 16
[2024-01-18] MEDS: oxyCODONE-APAP 10-325 mg Tablet PO ×2 (04:29→09:03)
[2024-01-18 04:32] VITALS: BMI 31.4
[2024-01-18] MEDS: ceFAZolin 2,000 MG in sodium chloride 0.9% (plus) 50 ML 100 MG IV (06:09)
[2024-01-18 08:00] VITALS: BP 109/72; PULSE 70; RESP 16; TEMP 36.6; O2SAT 96
--- NOTE | 2024-01-18 08:49 | P.DS_ITS ---
Discharge Providers Date of Admission: 01/17/24 10:14 Date of Discharge: January 18, 2024 Attending Provider at Admission: William Avalos DO Attending Provider at Discharge: William Avalos DO Primary Care Provider: NICOLE Stearns Reason for Visit Reason for Visit: M48.062 Physical Exam Narrative: Patient sitting up in chair doing well. Urinary Catheter Management: Solorzano: Cath Placed During This Visit: yes, but has since been removed by the nurse Reason for Continuing Indwelling Catheter: Decision to DC Catheter Urinary Catheter Date of Insertion: 01/17/24 Urinary Catheter Time of Insertion: 07:15 Date Urinary Catheter Removed: 01/17/24 Time Urinary Catheter Discontinued: 13:14 Discharge Data Studies Completed and Pending Completed Studies During Hospitalization Category Date Time Status XR lumbar spine 2-3V* [id number] Routine Exams 01/17/24 09:32 Completed Radiology Impressions Lumbar Spine X-Ray 01/17/24 09:32 IMPRESSION: Intraoperative imaging by C-arm during lumbosacral fusion Laboratory Results Blood Type A Positive 01/17/24 06:15 Rho(D) Type Rh positive 01/17/24 06:15 Antibody Screen Negative 01/17/24 06:15 Vitals Last Vital Signs Temp 97.7 F 01/18/24 04:00 Pulse 63 01/18/24 04:00 Resp 16 01/18/24 04:29 BP 113/70 01/18/24 04:00 Pulse Ox 98 01/18/24 04:00 O2 Del Method Room Air 01/18/24 04:00 O2 Flow Rate 6 01/17/24 10:05 Discharge Plan Discharge Patient Disposition: Home Condition: Stable Prescriptions: New oxycodone 10 mg tablet 10 mg PO Q4H PRN (Reason: pain) 7 Days Qty: 40 0RF Continued meloxicam 15 mg tablet 15 mg PO DAILY lidocaine 5 % adhesive patch,medicated 1 patch topical TID Rx Instructions: leave on most painful area for up to 12 hrs buspirone 10 mg tablet 10 mg PO BID Qty: 60 2RF duloxetine 60 mg capsule,delayed release(DR/EC) 60 mg PO DAILY Qty: 30 2RF tizanidine 4 mg tablet 4 mg PO BID PRN (Reason: muscle spasticity) 30 Days Qty: 60 0RF Depakote ER 500 mg tablet extended release 24 hr 1,000 mg PO QPM Discontinued oxycodone 5 mg tablet 5 mg PO Q8H PRN (Reason: pain) 7 Days Qty: 21 0RF Discharge Orders: Discharge Order (Routine); Ordered 01/18/24 Ordered By: William Avalos Discharge Diet: Advance as tolerated Discharge Activity: Limit activity as instructed Patient Instructions: Opioid Safety Activity Restrictions/Additional Instructions: Thank you for [facility] for your care! The following is a list of instructions, from your provider, to follow upon your discharge to ensure you have the optimal recovery from your recent injury orsurgery. Follow-up care is a benjamin part of your treatment and safety. Be sure to make and go to all appointments, and call your doctor if you are having problems. If you do not already have a follow-up appointment made, call [] office in the next 1-3 days to make follow up appointment for [] weeks at [phone]. It is also a good idea to know your test results and keep a list of the medicines you take. Medications will be prescribed for you at your provider's discretion. These medications are to be used as instructed; if they are taken more often that prescribed they will not be refilled early and in most cases will not be refilled at all. > When a refill is needed,you should contact [facility] 2-3 business days before your prescription runs out. Medications will NOT be refilled by wind farm operations manager providers after hours! > Many pain medications contain Tylenol (Acetaminophen). Do not consume more than 4,000 mg of Tylenol per day in total with any combination ofmedications. > Pain medications can cause constipation. Please use an over the counter stool softener as directed, while taking pain medications. Consulty our local pharmacist with questions or recommendations on stool softeners. If constipation persists, contact our office or your primary care provider. > While under our care,you are not to receive pain medications or other controlled substances from any other provider unless our office is notified and approves. Any attempts to do so will result in refusal to prescribe any further pain medications and possible dismissal from our practice. ? ? Showering is permitted, however we ask that you do not take a bath, sit in a whirlpool / Jacuzzi, or go swimming for 1 month. For only the first 2 days after surgery, lt wilt be necessary for you to cover your wound/dressing with plastic and tape to keep it dry. ? Walking is essential for the healing process after surgery. We would like you to slowly advance your walking. This should be done on relatively flat clear ground (inside or out) or can be done on a treadmill. Remember this goal does not have to happen all at once, slowly increase your distance and duration. This can be broken into more more than one walk per day as tolerated. Patients who walk as directed after surgery rarely require Physical Therapy. In the unlikely event this issue arises your provider will direct hospital staff to make the appropriate arrangements. ? No lifting over 5 pounds {a gallon of milk) or bending/twisting until further notice. Each of these activities places an unnecessary amount of stress onto the body and can impede the delicate healing process. > Instead of bending at the waist, keep your back straight and bend at the knees. > Instead of twisting your torso, keep your back straight and turn your entire body with your feet. ? You may sleep in any position which makes you comfortable. Many patients find comfort sleeping in a reclining chair. It is not abnormal to have difficulty sleeping for the first several weeks following your surgery. We recommend trying Benadry! or Tylenol PM as directed to help with your sleeping difficulties. Both medications are over the counter and available withoutprescription. ? NO SMOKING!!! Smoking dramatically increases the probability of developing postoperative wound infections. ? Common complaints after lumbar and/or thoracic spine surgery include, but are not limited to: numbness and/or tingling in the legs, pain around the incision and surrounding tissues, muscle spasms, or stiffness of the middle to low back. Contact our office if these symptoms persist or if an acute change occurs. ? No driving for the first 3-5days, and not while taking narcotics [] until seen at your follow-up appointment and cleared. There are no restrictions for riding on short trips, however if you take a longer trip, arrangements should be made to make regular stops to get out of the vehicle and stretch . ? Swelling is an unfortunate event that will take place with any surgery and is the primary source of your postoperative discomfort. While walking and regular approved activities helps control inflammation, there are additional steps you can take to minimizeswelling. > Place ice over the surgical site and surrounding tissue for twenty minutes, followed by applying a low/medium heat (heating pad) for an additional twenty minutes every 1-2 hours as needed for painrelief. > You may use of over the counter anti-inflammatory medications (Ibuprofen, Motrin, Aleve, Advil, etc) as directed on the package label. These types of medicines wm significantly reduce the amount of discomfort you experience after surgery from swelling. It should be noted that if you have and allergy to any of these medications, or a history of ulcers or kidney disease you should consult you primary care provider prior to starting these medicati ons. Discharge Attestations Time Spent in Discharge Care*: less than 30 min Quality Metrics Clinical Quality Measures [ No reported AMI, CVA or VTE this stay] Coding Level of Care Code Acute Code for Chg Sarah
[2024-01-18] MEDS: duloxetine 60 mg Capsule PO (08:54)
[2024-01-18] MEDS: BuSPIRONE 10 mg Tablet PO (08:54)
[2024-01-18] MEDS: docusate sodium 100 mg Capsule PO (08:55)
[2024-01-18 09:03] VITALS: RESP 16; O2SAT 98
--- NOTE | 2024-01-18 14:56 | PC.NURSE ---
Discussed discharge follow up appointment, medications and extensive activity and incision care with spouse and patient. Verbalized understanding of all mentioned.
[2024-01-18 14:59] VITALS: BP 109/72; PULSE 70; RESP 16; TEMP 36.6; O2SAT 96
== END 2024-01-18 12:06 | disposition home or self-care (01) ==
LOC: MEDSURG 13:01
PROVIDERS: Admitting Provider Orthopaedic Surgery; PCP Nurse Practitioner; Visit Provider Orthopaedic Surgery
PROC: (CPT 22612; principal; 2024-01-17 07:00)
DX: M48.062 Spinal stenosis, lumbar region with neurogenic claudication (principal); J44.9 Chronic obstructive pulmonary disease, unspecified; E66.01 Morbid (severe) obesity due to excess calories; Z68.31 Body mass index [BMI] 31.0-31.9, adult; G89.29 Other chronic pain; Z79.891 Long term (current) use of opiate analgesic; F41.1 Generalized anxiety disorder; Z87.891 Personal history of nicotine dependence
CPT/HCPCS: 20930; 20936; 20939; 22614; 22633; 22842; 22853; 61783; 63052; 36415; 51702; 72100; 76000; 86850; 86900; 97161; C1713; G0378; J0131; J0690; J1100; J1170; J1644; J2250; J2270; J2405; J2704; J3010; J3370; J3490; J7030; J7120

== ENCOUNTER 2024-01-18 18:09 | Emergency (ER) | payer BC, MEDICAID, SELFPAY ==
[2024-01-18 18:13] VITALS: BP 125/83; PULSE 100; RESP 20; TEMP 37.4; O2SAT 92; BMI 32.3
[2024-01-18 19:42] LABS: Basophils % 0.3 %; Eosinophils % 0.1 %; Hematocrit 36.6 % (37-53); Lymphocytes # 1.7 10^3/uL (0.8-4.8); Lymphocytes % 11.7 %; Mean Corpuscular HGB Conc 33.3 g/dL (30-55); Mean Corpuscular Hemoglobin 29.9 pg (27-33); Mean Corpuscular Volume 89.7 fl (82-101); Mean Platelet Volume 10.9 fL (7.4-10.4); Monocytes # 1.8 10^3/uL (0.2-0.9); Monocytes % 12.5 %; Neutrophils # 10.98 10^3/uL (1.8-7.7); Neutrophils % 74.9 %; Nucleated Red Blood Cells % 0 %; Platelet Count 173 10^3/cmm (157-399); Red Blood Count 4.08 10^6/uL (3.85-5.65); White Blood Count 14.68 10^3/uL (3.29-11.43)
[2024-01-18] MEDS: ondansetron 2 mg/ML SDV 2 mL 4 MG IVP (19:43)
[2024-01-18] MEDS: HYDROmorphone 1 mg/mL INJ 1 mL IVP (19:43)
[2024-01-18 19:57] LABS: Alanine Aminotransferase 34 U/L (0-41); Albumin Level 4.1 g/dL (3.5-5.2); Alkaline Phosphatase 55 U/L (40-130); Aspartate Amino Transferase 46 U/L (0-40); Blood Urea Nitrogen 14 mg/dL (6-20); Calcium 8.7 mg/dL (8.5-10.5); Carbon Dioxide 26 mmol/L (22-29); Chloride 100 mmol/L (98-107); Creatinine Clr Calc Pharmacy 108.3987; Globulin 2.6 g/dL (1.3-4.6); Glomerular Filtration Rate 80.8 mL/min (90-130); Glucose 149 mg/dL (65-115); Osmolality Calculated 285 mOsm/kg (285-295); Sodium 136 mmol/L (136-145); Total Bilirubin 0.3 mg/dL (0.15-1.2); Total Protein 6.7 g/dL (6.6-8.7)
--- NOTE | 2024-01-18 20:00 | XRR_ITS ---
PROCEDURE INFORMATION: Exam: XR Lumbosacral Spine Exam date and time: 01/18/2024 8:07 PM Age: 43 years old Clinical indication: Low back pain; Prior surgery; Surgery date: Post-operative (0-2 days); Surgery type: L-spine fusion; Additional info: Fusion yest, twisted in bed today sudden worsening pain TECHNIQUE: Imaging protocol: Radiologic exam of the lumbosacral spine. Views: 2 or 3 views. COMPARISON: OT XR lumbar spine 2-3V* [id number] 01/17/2024 7:31 AM FINDINGS: Bones/joints: L4/5/S1 bilateral pedicle screws with intervertebral disc spacers at L4-L5 and L5/S1 in place. L1 vertebral body minimal compression deformity appears chronic without retropulsion of bony fragments. Multilevel mild productive degenerative endplate changes throughout the spine. Soft tissues: Unremarkable. XR/XR lumbar spine 2-3V* [id number] IMPRESSION: 1. L4/5/S1 bilateral pedicle screws with intervertebral disc spacers at L4-L5 and L5/S1 in place. 2. L1 vertebral body minimal compression deformity appears chronic without retropulsion of bony fragments. 3. Multilevel mild productive degenerative endplate changes throughout the spine.
--- NOTE | 2024-01-18 20:18 | W.ED.BACK ---
HPI - Back Pain/Injury General: Chief Complaint: Back Pain/Injury Stated Complaint: back pain post surgery Time Seen by Provider: 01/18/24 19:07 History of Present Illness: Patient presents to the ER with complaints of worsening back pain and more numbness down his left leg. Patient had back surgery yesterday by Dr. Chester said he had surgery on about L4-S1, he was discharged earlier this morning he went home was doing good lay down took a nap when he woke up he twisted in his bed and suddenly had intense pain in his low back and worsening numbness down his left leg. Patient was given oxycodone 10 mg for discharge he has taken those but those do not seem to be working. Review of Systems General: Reports: 10 or more systems reviewed and unremarkable except in HPI and below PFSH ED PFSH: Medical History Psychiatric care Major depression Generalized anxiety disorder Bipolar 1 disorder Lumbar disc disease with radiculopathy Lumbar stenosis with neurogenic claudication Surgical History History of surgery on arm age 1 had compartment syndrome in right arm and had I&D to drain it. Status post lumbar laminectomy Hx of shoulder surgery Hx of elbow surgery Hx of knee surgery Family History Denies family history of Clotting disorder Anesthesia complication Bleeding disorder Social History Smoking and tobacco/nicotine status: former use of tobacco/nicotine Quit status (tobacco/nicotine): has quit using Year quit tobacco: 2021 Former quit date comment: 16 pack year history Alcohol intake: former Year of sobriety/quit date alcohol: 25 Substance/Drug Use: former Date of last use: hx of marijuana use Physical Exam Const: COMMON NORMALS: no acute distress, average body habitus, patient oriented x3, no limitations, healthy appearing, alert and well nourished Neck/C-Spine: COMMON NORMALS: no JVD Chest: COMMONS NORMALS: normal inspection of the chest and normal palpation of entire chest wall Resp: COMMON NORMALS: normal respiratory effort, No retractions, No use of accessory muscles and clear to auscultation bilaterally AUSCULTATION: clear to auscultation bilaterally Cardio: COMMON NORMALS: no JVD, regular rate, regular rhythm, S1 normal heart sound present, S2 normal heart sound present, No gallops present (Cardio), No clicks present (Cardio), No murmurs present (Cardio) and No rub (Cardio) RATE: regular rate RHYTHM: regular rhythm HEART SOUNDS: S1 normal heart sound present and S2 normal heart sound present GI: COMMON NORMALS: Normal to inspection, nondistended, normoactive bowel sounds present, Soft to palpation, non-tender, No hepatosplenomegaly present and no masses PALPATION: Yes Soft to palpation and Yes No hepatosplenomegaly present : OTHER: Abdominal binder on Neuro: COMMON NORMALS: patient oriented x3 SENSORIUM/ORIENTATION: Yes alert Course Vital Signs: Vital signs: Vital Signs Temperature 99.4 F 01/18/24 18:13 Pulse Rate 68 01/18/24 21:25 Respiratory Rate 18 01/18/24 21:25 Blood Pressure 134/76 01/18/24 21:25 Pulse Oximetry 94 01/18/24 21:25 Oxygen Delivery Me thod Room Air 01/18/24 18:13 MDM - Back Pain/Injury Medical Decision Making Patient presents to the ER after twisting in bed today having sudden onset worsening pain from his low back. He does have oxycodone 10 mg at home. Patient does not have a fever his temperature is 99.4, patient was given 1 mg of Dilaudid and 4 mg Zofran, basic lab work was obtained including CBC CMP which is benign white count was slightly elevated 14.68 but this may be due to just the stress of surgery, lumbar spine x-ray showed postsurgical changes nothing acute appearing. Patient's pain improved substantially. Patient declined any more medicine or muscle relaxer. Patient be discharged home to follow-up with Dr. Avalos at his next normally scheduled appointment. Differential Diagnosis Likely lumbar radiculopathy Medical Records I reviewed the patient's medical records. Labs I reviewed the patient's lab results. 01/18/24 19:34 01/18/24 19:34 Radiology Impressions Lumbar Spine X-Ray 01/18/24 20:00 IMPRESSION: 1. L4/5/S1 bilateral pedicle screws with intervertebral disc spacers at L4-L5 and L5/S1 in place. 2. L1 vertebral body minimal compression deformity appears chronic without retropulsion of bony fragments. 3. Multilevel mild productive degenerative endplate changes throughout the spine. Laboratory Results WBC 14.68 10^3/uL (3.29-11.43) H 01/18/24 19:34 RBC 4.08 10^6/uL (3.85-5.65) 01/18/24 19:34 Hgb 12.20 g/dL (11.27-16.99) 01/18/24 19:34 Hct 36.6 % (37-53) L 01/18/24 19:34 MCV 89.7 fl (82-101) 01/18/24 19:34 MCH 29.9 pg (27-33) 01/18/24 19:34 MCHC 33.3 g/dL (30-55) 01/18/24 19:34 RDW 12.0 % (12.1-15.1) L 01/18/24 19:34 Plt Count 173 10^3/cmm (157-399) 01/18/24 19:34 MPV 10.9 fL (7.4-10.4) H 01/18/24 19:34 Neut % (Auto) 74.9 % 01/18/24 19:34 Lymph % (Auto) 11.7 % 01/18/24 19:34 [place] % (Auto) 12.5 % 01/18/24 19:34 Eos % (Auto) 0.1 % 01/18/24 19:34 Baso % (Auto) 0.3 % 01/18/24 19:34 Neut # (Auto) 10.98 10^3/uL (1.8-7.7) H 01/18/24 19:34 Lymph # (Auto) 1.7 10^3/uL (0.8-4.8) 01/18/24 19:34 [place] # (Auto) 1.8 10^3/uL (0.2-0.9) H 01/18/24 19:34 Eos # (Auto) 0.0 10^3/uL (0.0-0.8) 01/18/24 19:34 Baso # (Auto) 0.0 10^3/uL (0.0-0.1) 01/18/24 19:34 Nucleated RBC % (auto) 0 % 06/13/24 19:34 Nucleated RBCs # 0.0 /100WBC 01/18/24 19:34 Sodium 136 mmol/L (136-145) 01/18/24 19:34 Potassium 4.0 mmol/L (3.5-5.1) 01/18/24 19:34 Chloride 100 mmol/L (98-107) 01/18/24 19:34 Carbon Dioxide 26 mmol/L (22-29) 01/18/24 19:34 Anion Gap 14.0 (5-19) 01/18/24 19:34 BUN 14 mg/dL (6-20) 01/18/24 19:34 Creatinine 1.0 mg/dL (0.7-1.2) 01/18/24 19:34 GFR Calculation 80.8 mL/min (90-130) L 01/18/24 19:34 Glucose 149 mg/dL (65-115) H 01/18/24 19:34 Calculated Osmolality 285 mOsm/kg (285-295) 01/18/24 19:34 Calcium 8.7 mg/dL (8.5-10.5) 01/18/24 19:34 Total Bilirubin 0.3 mg/dL (0.15-1.2) 01/18/24 19:34 AST 46 U/L (0-40) H 01/18/24 19:34 ALT 34 U/L (0-41) 01/18/24 19:34 Alkaline Phosphatase 55 U/L (40-130) 01/18/24 19:34 Total Protein 6.7 g/dL (6.6-8.7) 01/18/24 19:34 Albumin 4.1 g/dL (3.5-5.2) 01/18/24 19:34 Globulin 2.6 g/dL (1.3-4.6) 01/18/24 19:34 All radiology interpretation(s) finalized by discharge Discharge Plan Discharge Patient Disposition: Home Clinical Impression: Postoperative back pain Condition: Stable Prescriptions: No Action meloxicam 15 mg tablet 15 mg PO DAILY lidocaine 5 % adhesive patch,medicated 1 patch topical TID Rx Instructions: leave on most painful area for up to 12 hrs buspirone 10 mg tablet 10 mg PO BID Qty: 60 2RF duloxetine 60 mg capsule,delayed release(DR/EC) 60 mg PO DAILY Qty: 30 2RF tizanidine 4 mg tablet 4 mg PO BID PRN (Reason: muscle spasticity) 30 Days Qty: 60 0RF Depakote ER 500 mg tablet extended release 24 hr 1,000 mg PO QPM oxycodone 10 mg tablet 10 mg PO Q4H PRN (Reason: pain) 7 Days Qty: 40 0RF Discharge Orders: Discharge ED (Routine); Ordered 01/18/24 Ordered By: Jozef Worthington Referrals: Mary Nicholson FNP [Primary Care Provider] - 1 week Patient Instructions: Opioid Safety, Pain Management Activity Restrictions/Additional Instructions: Please keep your normal schedule appointment with Dr. Avalos for postop follow-up. Please continue your normal pain medicine as previously prescribed. If your symptoms worsen please feel free to call Dr. Avalos to try to get an earlier appointment and/or return to the ER. Coding Level of Care Code ED Senior Scrum Master for [facility]
[2024-01-18 21:25] VITALS: BP 134/76; PULSE 68; RESP 18; O2SAT 94
== END 2024-01-18 22:35 | disposition home or self-care (01) ==
PROVIDERS: Emergency Provider Emergency Medicine; PCP Nurse Practitioner
DX: G89.18 Other acute postprocedural pain (principal); M54.59 Other low back pain; Z87.891 Personal history of nicotine dependence
CPT/HCPCS: 36415; 72100; 80053; 85025; 96374; 96375; 99284; J1170; J2405

== ENCOUNTER → 2024-02-27 10:05 | Outpatient (BNVA) | payer BC, MEDICAID, SELFPAY | PROVIDERS: PCP Nurse Practitioner; Visit Provider Orthopaedic Surgery | DX: Z98.1 Arthrodesis status (principal) | CPT/HCPCS: 72100 ==

== ENCOUNTER → 2024-04-09 14:37 | Outpatient (BNVA) | payer BC, MEDICAID, SELFPAY | PROVIDERS: PCP Nurse Practitioner; Visit Provider Orthopaedic Surgery | DX: M48.062 Spinal stenosis, lumbar region with neurogenic claudication (principal); Z98.1 Arthrodesis status | CPT/HCPCS: 72100 ==

== ENCOUNTER → 2024-08-13 15:46 | Outpatient (BNVA) | payer BC, SELFPAY | PROVIDERS: PCP Nurse Practitioner; Visit Provider Orthopaedic Surgery | DX: Z98.1 Arthrodesis status (principal); M48.062 Spinal stenosis, lumbar region with neurogenic claudication; M54.2 Cervicalgia | CPT/HCPCS: 72050; 72100 ==

== ENCOUNTER → 2024-10-29 14:38 | Outpatient (BNVA) | payer BC, MEDICAID, SELFPAY | PROVIDERS: PCP Nurse Practitioner; Visit Provider Orthopaedic Surgery | DX: Z98.890 Other specified postprocedural states (principal); M48.062 Spinal stenosis, lumbar region with neurogenic claudication | CPT/HCPCS: 72100 ==

== ENCOUNTER 2024-11-01 13:54 | Outpatient (CLI) | payer BC, MEDICAID, SELFPAY ==
--- NOTE | 2024-11-01 14:30 | MR_ITS ---
WS: [id number] MRI CERVICAL SPINE NONCONTRAST HISTORY: neck pain COMPARISON: None available. Technique: Multiplanar, multisequence noncontrast imaging of the cervical spine. Normal cervical alignment with no compression fracture or significant disc space narrowing. Signal within the cervical cord is normal. Visualized posterior fossa is unremarkable. Craniocervical junction, C1 and C2 relationship, odontoid process and soft tissues are normal. C2-C3: No stenosis. Mild RIGHT foraminal narrowing due to osteophyte. C3-C4: Small bilateral foraminal osteophytes and mild narrowing. C4-C5: Proximal LEFT foraminal osteophyte with mild narrowing. No high-grade stenosis. C5-C6: Small central disc protrusion and small foraminal osteophytes. C6-C7: Small central disc protrusion. Moderate bilateral foraminal osteophytes causing moderate stenosis. C7-T1: Normal. T2-3: Small central disc protrusion. MR/MR cervical spin wo con* [id number] IMPRESSION: 1. No high-grade central or foraminal stenosis. 2. Multilevel small foraminal osteophytes. 3. Most significant osteophytosis at C6-7. Small central disc protrusion with moderate bilateral foraminal stenosis due to osteophyte disease.
== END 2024-11-01 13:55 | disposition home or self-care (01) ==
LOC: RAD 13:55
PROVIDERS: PCP Nurse Practitioner; Visit Provider Orthopaedic Surgery
DX: M48.02 Spinal stenosis, cervical region (principal); M25.78 Osteophyte, vertebrae; M50.223 Other cervical disc displacement at C6-C7 level; M50.222 Other cervical disc displacement at C5-C6 level; M51.24 Other intervertebral disc displacement, thoracic region
CPT/HCPCS: 72141

== ENCOUNTER → 2024-12-25 13:08 | Outpatient (BNVA) | payer BC, MEDICAID, SELFPAY | PROVIDERS: PCP Nurse Practitioner; Visit Provider Anesthesiology Pain Medicine | DX: M53.3 Sacrococcygeal disorders, not elsewhere classified (principal) | CPT/HCPCS: 77002 ==

== ENCOUNTER → 2025-01-14 15:34 | Outpatient (BNVA) | payer BC, MEDICAID, SELFPAY | PROVIDERS: PCP Nurse Practitioner; Visit Provider Orthopaedic Surgery | DX: M54.9 Dorsalgia, unspecified (principal) | CPT/HCPCS: 72072; 72100 ==

== ENCOUNTER 2025-01-28 09:43 | Outpatient (CLI) | payer BC, MEDICAID, SELFPAY ==
--- NOTE | 2025-01-28 10:00 | CT_ITS ---
WS: [id number] CT LUMBAR SPINE, noncontrast. HISTORY: back pain TECHNIQUE: Contiguous 2.0 mm axial imaging are performed. Sagittal and coronal reformats are submitted and reviewed. All CT scans at [facility] use at least one of these dose optimization techniques: automated exposure control; mA and/or kV adjustment per patient size (includes targeted exams where dose is matched to clinical indication); or iterative reconstruction. IV contrast: None DLP: 572.79 mGy.cm COMPARISON: Lumbar radiograph 01/14/2025 Posterior lumbar fusion from L4-S1 with interbody spacers at L4-5 and L5-S1. Spacers are appropriately positioned. No subsidence. No hardware fracture. Very slight retrolisthesis of L3 by 2 mm. L1-2: Normal. L2-3: Mild annular disc bulging. No stenosis. L3-4: Mild annular disc bulging with mild encroachment upon the ventral thecal sac and subarticular recesses. Mild central, subarticular recess and foraminal stenosis. L4-5: Large posterior laminectomy defect. Postsurgical changes in the soft tissues identified. No recurrent central herniation. Mild widening RIGHT facet joint. L5-S1: Large posterior laminectomy defect. Mild vertebral body osteophytic ridging. Osteophytes encroach upon the ventral thecal sac. Mild foraminal stenosis. Visualized retroperitoneum is negative. CT/CT lumbar spine wo con* [id number] IMPRESSION: 1. Status post posterior lumbar fusion from L4-S1 with interbody spacers at L4 -5 and L5-S1. 2. No lucency around the hardware. 3. Very mild disc encroachment upon the ventral thecal sac and foramina at L3- 4. Mild central, subarticular recess and foraminal stenosis. 4. Large laminectomy defects at L4-5 and L5-S1. 5. Mild widening of the RIGHT L4-5 facet joint. 6. Mild foraminal stenosis at L5-S1. Vertebral body osteophytes encroach upon the ventral thecal sac from L5.
== END 2025-01-28 09:44 | disposition home or self-care (01) ==
LOC: RAD 09:43
PROVIDERS: PCP Nurse Practitioner; Visit Provider Orthopaedic Surgery
DX: M48.061 Spinal stenosis, lumbar region without neurogenic claudication (principal); M25.78 Osteophyte, vertebrae; Z98.1 Arthrodesis status
CPT/HCPCS: 72131

== ENCOUNTER → 2025-02-17 11:28 | Outpatient (BNVA) | payer BC, SELFPAY | PROVIDERS: PCP Nurse Practitioner; Visit Provider Psychiatry & Neurology Psychiatry | DX: F31.81 Bipolar II disorder (principal); F41.1 Generalized anxiety disorder; F17.210 Nicotine dependence, cigarettes, uncomplicated | CPT/HCPCS: 80053; 80164 ==